=== PATIENT | female | born 1985 | race Caucasian/White ===

== ENCOUNTER → 2018-02-10 17:02 | Outpatient (CLI) | payer BC, SELFPAY ==
[2018-02-10 17:36] LABS: Basophils % 0.3 % (0.1-2.0); Eosinophils # 0.1 K/mm3 (0.0-0.4); Eosinophils % 0.8 % (0.1-12.0); Hematocrit 38.5 % (37.0-47.0); Hemoglobin 12.8 g/dL (12.2-16.2); Lymphocytes # 1.7 K/mm3 (0.7-4.5); Lymphocytes % 18.7 K/mm3 (10-50); Mean Corpuscular HGB Conc 33.4 g/dL (31.8-35.4); Mean Corpuscular Hemoglobin 29.4 pg (27.0-31.2); Mean Corpuscular Volume 88.1 fl (81-99); Mean Platelet Volume 6.9 fl (7.4-10.4); Monocytes # 0.5 K/mm3 (0.1-1.0); Monocytes % 5.1 % (1.7-9.3); Neutrophils # 6.8 K/mm3 (1.8-7.8); Neutrophils % 75.1 % (37.0-80.0); Platelet Count 276 K/mm3 (142-424); Red Blood Count 4.37 M/mm3 (4.20-5.40); Red Cell Distribution Width 13.8 % (11.5-17.5)
[2018-02-12 07:25] LABS: HIV Screen 4th Generation wRfx Non Reactive (Non Reactive)
[2018-02-12 08:11] LABS: Hepatitis B Surface Antigen Negative (Negative); Hepatitis C Antibody 0.1 s/co ratio (0.0-0.9)
[2018-02-12 11:31] LABS: Rapid Plasma Reagin Ab Titer Non Reactive (NonRea<1:1)
== END ==
PROVIDERS: Visit Provider Nurse Practitioner Obstetrics & Gynecology
DX: Z34.90 Encounter for supervision of normal pregnancy, unspecified, unspecified trimester (principal)
CPT/HCPCS: 36415; 85025; 86592; 86703; 86762; 86850; 87340; 87380; G0432

== ENCOUNTER → 2018-02-25 15:01 | Outpatient (CLI) | payer BC, SELFPAY ==
--- NOTE | 2018-02-25 15:02 | US_ITS ---
US OB transvaginal HISTORY: ITS.REASON: US OB- Dates ORDERING PHYSICIAN: Glenn Chisholm MD PATIENT AGE: 32 years COMPARISON: None FINDINGS: The uterus is retroverted An intrauterine gestational sac is present with a pole with a crown-rump length of 1.88cm correlating to gestational age of 8w3d. heart tones are present with an FHR of 160 bpm's. Yolk sac is noted. The amnion and chorion have not yet fused. Adnexa: Unremarkable. IMPRESSION: 1. Live intrauterine gestation at 8 weeks 3 days. 2. Estimated due date by ultrasound is 10/04/2018 3. Retroverted uterus
== END ==
PROVIDERS: Family Provider Family Medicine; PCP Family Medicine; Visit Provider Nurse Practitioner Obstetrics & Gynecology
DX: O26.841 Uterine size-date discrepancy, first trimester (principal)
CPT/HCPCS: 76817

== ENCOUNTER → 2018-03-10 16:02 | Outpatient (CLI) | payer BC, SELFPAY | PROVIDERS: PCP Family Medicine; Visit Provider Nurse Practitioner Obstetrics & Gynecology | DX: O20.9 Hemorrhage in early pregnancy, unspecified (principal) | CPT/HCPCS: 36415; 84702 ==

== ENCOUNTER → 2018-04-22 11:46 | Outpatient (CLI) | payer BC, SELFPAY ==
[2018-04-25 02:08] LABS: AFP Value 50.3 ng/mL (.); DIA MoM 0.87 (.); DIA Value 139.06 pg/mL (.); DSR (Second Trimester) 1 IN 10000 (.); Gest. Age on Collection Date 16.4 WEEKS (.); OSBR Risk 1 IN 2591 (.); Results Report (.); hCG MoM 0.97 (.); hCG Value 32691 mIU/mL (.); uE3 MoM 1.99 (.); uE3 Value 1.65 ng/mL (.)
[2018-04-25 06:44] LABS: Gestat. Age Based On EDD (.)
== END ==
PROVIDERS: Family Provider Family Medicine; PCP Family Medicine; Visit Provider Nurse Practitioner Obstetrics & Gynecology
DX: Z34.90 Encounter for supervision of normal pregnancy, unspecified, unspecified trimester (principal)
CPT/HCPCS: 36415; 82106

== ENCOUNTER → 2018-05-19 14:52 | Outpatient (CLI) | payer BC, SELFPAY ==
--- NOTE | 2018-05-19 14:53 | US_ITS ---
US OB /maternal detail: INDICATION: ITS.REASON: US OB Complete ORDERING PHYSICIAN: Glenn Chisholm MD PATIENT AGE: 32 years TECHNIQUE: ultrasound transabdominal scanning. COMPARISON: No previous relevant studies. FINDINGS: Single viable intrauterine gestation. Cephalic position. Placenta: Posterior placenta grade 1. There is Burns amount fluid. The cervix appears satisfactory. Closed and measuring 5 cm in length. Complete survey performed and was unremarkable on the submitted images as in PACS. No discrete anomalies identified on survey imaging by technologist. Active fetus. Three-vessel cord with satisfactory umbilical cord insertion. 4- chamber heart noted. Survey of brain & ventricles unremarkable. Face and neck survey unremarkable. Diaphragm and chest views unremarkable. Abdomen: Both kidneys noted and unremarkable. Stomach noted and satisfactory. Spine: Survey of the spine satisfactory with no anomalies identified nor imaged. Both arms and legs noted. Amniotic Fluid: Adequate. Maternal adnexa: No significant findings. Measurements: Average ultrasound age 20w4d. Gestational Age 20w4d. Estimated due date by ultrasound age 0410/02/2018. Estimated weight 358 grams. BPD = 20w3d OFD = 21w2d HC = 20w2d AC = 20w6d FL = 20w6d Growth Percentile= 57 percentile Heart Rate = 149 Cerebellum = 20w3d Humerus = 20w3d HC/AC is 1.13 (1.09-1.26). CI is 74%(70-86%). FL/BPD is 69%. FL/AC is 21%. IMPRESSION: There is a single live fetus present with an average ultrasound age of 20 weeks and 4 days with an estimated due date of 10/02/2018. Fetus is active with no obvious anatomic abnormalities. All parameters correlate. Please see above for details.
== END ==
PROVIDERS: PCP Family Medicine; Visit Provider Nurse Practitioner Obstetrics & Gynecology
DX: Z36.0 Encounter for antenatal screening for chromosomal anomalies (principal)
CPT/HCPCS: 76811

== ENCOUNTER → 2018-07-25 08:15 | Outpatient (CLI) | payer BC, SELFPAY ==
[2018-07-25 09:23] LABS: Glucose,Fasting 113 mg/dL (60-105)
[2018-07-25 10:18] LABS: Glucose 1 Hour 193 mg/dL (74-106)
== END ==
PROVIDERS: Visit Provider Nurse Practitioner Obstetrics & Gynecology
DX: Z34.90 Encounter for supervision of normal pregnancy, unspecified, unspecified trimester (principal)
CPT/HCPCS: 36415; 82951

== ENCOUNTER → 2018-08-01 07:04 | Outpatient (CLI) | payer BC, SELFPAY ==
[2018-08-01 07:50] LABS: Glucose,Fasting 106 mg/dL (60-105)
[2018-08-01 09:38] LABS: Glucose 1 Hour 214 mg/dL (74-106)
[2018-08-01 09:49] LABS: Glucose 2 Hour 146 mg/dL (74-106)
[2018-08-01 11:08] LABS: Glucose 3 Hour 153 mg/dL (74-106)
== END ==
PROVIDERS: Visit Provider Nurse Practitioner Obstetrics & Gynecology
DX: Z34.90 Encounter for supervision of normal pregnancy, unspecified, unspecified trimester (principal)
CPT/HCPCS: 36415; 82951

== ENCOUNTER → 2018-09-01 17:29 | Outpatient (CLI) | payer BC, SELFPAY | PROVIDERS: Visit Provider Nurse Practitioner Obstetrics & Gynecology | DX: Z34.90 Encounter for supervision of normal pregnancy, unspecified, unspecified trimester (principal) | CPT/HCPCS: 86403 ==

== ENCOUNTER 2018-09-26 05:28 | Inpatient (IN) ==
[2018-09-26 06:33] LABS: Basophils % 0.1 % (0.1-2.0); Eosinophils % 0.5 % (0.1-12.0); Hematocrit 39.3 % (37.0-47.0); Hemoglobin 13.6 g/dL (12.2-16.2); Lymphocytes # 2.1 K/mm3 (0.7-4.5); Lymphocytes % 25.5 % (10-50); Mean Corpuscular HGB Conc 34.7 g/dL (31.8-35.4); Mean Corpuscular Hemoglobin 29.5 pg (27.0-31.2); Mean Corpuscular Volume 84.8 fl (81-99); Mean Platelet Volume 7.1 fl (7.4-10.4); Monocytes # 0.5 K/mm3 (0.1-1.0); Neutrophils # 5.6 K/mm3 (1.8-7.8); Neutrophils % 67.9 % (37.0-80.0); Platelet Count 239 K/mm3 (142-424); Red Blood Count 4.63 M/mm3 (4.20-5.40); Red Cell Distribution Width 15.9 % (11.5-17.5); White Blood Count 8.3 K/mm3 (4.8-10.8)
--- NOTE | 2018-09-26 07:06 | Progress Note ---
[facility] Anesthesia Checklist - Patient Identification Patient Identification: Arm Band, Verbal (Name & ) - Structural Data Admitted From: Home Planned Operative Procedure/s: Repeat C section Consent for Planned Operative Procedure(s) Verified: Yes Verified Documents: Surgical Consent, History and Physical - NPO Status Verified Time NPO: 00:00 - Chart Verification Results Verified: CBC - Additional verifications Patient : Yes Anesthesia Reactions: No - Neurological Assessment Level of Consciousness: Awake Hx Seizures: No Numbness or tingling in extremities: No - Anesthesia Plan Anesthesia Risk discussed: Yes Anesthesia Plan: Verified ASA Class: II Anesthesia Type: [facility] History I have reviewed the patient's past medical history: Yes Medical History: Reports:: Gastroesophageal Reflux Disease(GERD) *Have you ever received a pneumonia vaccine?: No *Have you received a flu vaccine this season?: No Other Medical History: Reports: Other (Gestational Diabetes) Other Surgeries: Yes: (x2) Amputation: No Fractures: No - *Social History Smoking Status: Never smoker Alcohol Intake: never Substance Use Type: denies use *Occupational Status:: employed Housing: house Family Hx:: Diabetes, Cancer, Asthma, Stroke
--- NOTE | 2018-09-26 08:18 | Operative Note ---
Date of procedure: 09/26/18 Pre-op Diagnosis:: Term , previous section Post-op Diagnosis:: Term , previous section Procedure performed:: Repeat lower segment transverse section Surgeon:: Glenn Chisholm MD Toolroom Checker(s):: Yulissa Tanner SLASHER HAND:: Other (Chinmay Rose) Anesthesia: spinal Estimated blood loss (mL): 600 Clinical Note:: She is a 33-year-old 3 para 2 who was 39 weeks gestational age. She has had 2 previous section as a result of this was offered repeat lower segment transverse section at term. Operative findings:: She delivered a liveborn male child at 7:47 AM on the morning of September 26, 2018. The baby had Apgars of 9 at 1 minute and 9 at 5 minutes. PH was 7.34. Ovaries and tubes appeared normal. Operative note:: She was taken to the operating room where spinal anesthesia was found be adequate. She was prepped and draped in normal sterile fashion in the supine position with a leftward tilt. A Gaitan catheter was in the bladder. A Pfannenstiel skin incision was made with knife then carried through to the underlying layer of fascia with cautery. The fascia was opened in the midline with cautery and extended laterally using Javier scissors. Harini clamps were applied to the superior aspect of the fascial incision which was tented up and the underlying rectus muscles dissected off using cautery. The Hawks clamps were then applied to the inferior aspect of the fascial incision which in a similar fashion was tented up and the underlying rectus muscles dissected off using cautery. The rectus muscles were then in the midline, the peritoneum identified, and entered sharply with Metzenbaum scissors. This incision was then extended superiorly and inferiorly with cautery. We had good visualization of the bladder inferiorly. The Karlo device was then placed within the abdominal cavity. The bladder peritoneum was then opened in the midline and extended laterally using Metzenbaum scissors. A bladder flap was created digitally. The Karlo device was then placed within the abdominal cavity. Transverse incision was made through the uterine muscle to the amnion. This incision was then extended laterally using fingers traction. The amnion was entered sharply with knife. There was clear amniotic fluid. The 's head was then delivered atraumatically. This was followed by the anterior shoulder and the rest of the infant's body atraumatically. The oropharynx and nasopharynx were bulb suctioned. The infant was then handed off to nurses who assigned Apgars of 9 at 1 minute and 9 at 5 minutes. We then obtained cord blood as well as cord pH. The pH was 7.34. Using gentle traction on the cord and countertraction on the fundus I was able to easily deliver the placenta intact. It had a normal three-vessel cord. The uterus was then cleared of clots and debris . The uterine incision was then closed using running 0 Vicryl suture in a locked fashion. A second layer of the same suture was used to imbricate the first layer. The gutters and cul-de-sac were then cleared of clots and debris . I elected to place a large piece of Surgicel along the bladder peritoneum. Once again hemostasis was assured. The peritoneum was grasped with Angle clamps and closed using running 2-0 Vicryl suture. The rectus muscles were then reapproximated using running 0 Vicryl suture. The fascia was closed using running #1 Vicryl suture. The subcutaneous tissues were then irrigated with warm water followed by closure Ya's fascia using running 2-0 Monocryl suture. The skin was closed with girish. I then cleaned the skin with Hibiclens. Sterile dressings were applied. She tolerated the procedure well and was taken to the recovery room in excellent condition. All sponges minute and needle counts were correct. Estimate a blood loss was approximately 600 mL. Condition: stable Disposition: PACU Specimens:: Products of conception Complications:: None
--- NOTE | 2018-09-26 08:18 | Progress Note ---
[facility] Anesthesia Record Part I Intake, IV Amount: 1,000 Estimated blood loss (mL): 600 Urine output (mL): 400 Blood Pressure: 148/75 SaO2: 97 Pulse Rate: 86 Respiratory Rate: 16 Temperature: 97.2 F Patient is:: Awake, Stable Stable to PACU at:: 08:15
--- NOTE | 2018-09-26 08:19 | Progress Note ---
[facility] Anesthesia Record Part II Discharge Time: 08:45 Destination: Obstetric PACU nurse assessment reviewed?: Yes Patient Condition:: Good Anesthesia Complications:: None Swallowing reflex intact?: Yes Cyanosis?: No
[2018-09-27 05:57] LABS: Hematocrit 30.8 % (37.0-47.0)
[2018-09-27 06:01] LABS: Hemoglobin 10.3 g/dL (12.2-16.2)
--- NOTE | 2018-09-27 14:53 | Progress Note ---
Internal Medicine - PN: Subj *Date: 09/27/18 *Time: 14:51 Interval history: POD #1 elective repeat CS No complaints Tolerating regular diet, ambulating and voiding without difficulty Asymptomatic with postop anemia; hgb 13.6 at admission and 10.3 on POD #1 Exam Vital signs and Labs for Last 24 Hours: Temp Pulse Resp BP Pulse Ox 98.3 F 81 16 113/65 97 09/26/18 20:01 09/26/18 20:01 09/26/18 20:01 09/26/18 20:01 09/26/18 20:01 Laboratory Results - last 24 hr 09/27/18 05:45: Hgb 10.3 L D, Hct 30.8 L I & O for Last 24 hours: Intake & Output 09/25/18 09/26/18 09/27/18 09/28/18 11:59 11:59 11:59 11:59 Intake Total 1000 / 1000 503 / 503 Output Total 850 / 850 Balance 1000 / 1000 -347 / -347 Weight 179 lb Narrative: CONSTITUTIONAL: no acute distress HEENT: mucous membranes moist PULMONARY: breathing unlabored without audible wheezes CV: no tachycardia or visible JVD; normal LE peripheral pulses ABD: soft, NT/ND, no guarding : fundus firm at/below umbilicus SKIN: incision well approximated with no drainage, erythema or induration EXT: 1+ edema LEs NEURO: alert/oriented, no altered mental status PSYCH: appropriate mood and demeanor without anxiety/depression Assessment and Plan (1) Previous section Current visit: Yes Status: Acute Category: Surgical Code(s): Z98.891 - History of uterine scar from previous surgery (2) delivery delivered Current visit: Yes Status: Acute Category: Medical Code(s): O82 - Encounter for delivery without indication (3) Anemia associated with acute blood loss Current visit: Yes Status: Acute Category: Medical Code(s): D62 - Acute posthemorrhagic anemia - Assessment and plan all Dx Assessment and Plan for all problems:: Continue routine postop/ care FeSO4 supplementation with PNV
--- NOTE | 2018-09-28 15:06 | Progress Note ---
Internal Medicine - PN: Subj *Date: 09/28/18 *Time: 15:02 Interval history: POD # 2 RLTCS No complaints Ambulating and voiding without difficulty Tolerating regular diet Lochia appropriate Asymptomatic with mild anemia Exam Vital signs and Labs for Last 24 Hours: Temp Pulse Resp BP Pulse Ox 98.4 F 68 18 126/71 99 09/27/18 20:08 09/27/18 20:08 09/27/18 20:08 09/27/18 20:08 09/27/18 20:08 I & O for Last 24 hours: Intake & Output 09/26/18 09/27/18 09/28/18 09/29/18 11:59 11:59 11:59 11:59 Intake Total 1000 / 1000 503 / 503 Output Total 850 / 850 Balance 1000 / 1000 -347 / -347 Weight 179 lb Narrative: CONSTITUTIONAL: no acute distress HEENT: mucous membranes moist PULMONARY: breathing unlabored without audible wheezes CV: no tachycardia or visible JVD; normal LE peripheral pulses ABD: soft, ND; appropriately tender but no rebound/guarding : fundus firm at/below umbilicus SKIN: incision well approximated with no drainage, erythema or induration EXT: 1+ edema LEs NEURO: alert/oriented, no altered mental status PSYCH: appropriate mood and demeanor without anxiety/depression Assessment and Plan (1) Previous section Current visit: Yes Status: Acute Category: Surgical Code(s): Z98.891 - History of uterine scar from previous surgery (2) delivery delivered Current visit: Yes Status: Acute Category: Medical Code(s): O82 - Encounter for delivery without indication (3) Anemia associated with acute blood loss Current visit: Yes Status: Acute Category: Medical Code(s): D62 - Acute posthemorrhagic anemia - Assessment and plan all Dx Assessment and Plan for all problems:: Continue routine postop/ care PNV with FeSO4 supplementation Anticipate discharge in am
[2018-09-28 22:45] VITALS: BP 128/78
--- NOTE | 2018-09-29 14:09 | Discharge Summary ---
General - General Admission date:: 09/26/18 Discharge date: 09/29/18 HPI HPI: Admitted following elective repeat CS @ 39 wks Postop/ course uneventful Ambulating and voiding without difficulty Dylan regular diet; lochia appropriate asymptomatic with mild anemia discharged home on POD #3 Hospital Course Hospital Course: per HPI Rhogam Administration: Not Indicated Objective Vital signs: Temp Pulse Resp BP Pulse Ox 98.3 F 71 18 128/78 99 09/28/18 21:33 09/28/18 21:33 09/28/18 21:33 09/28/18 21:33 09/28/18 21:33 CONSTITUTIONAL: no acute distress HEENT: mucous membranes moist PULMONARY: breathing unlabored without audible wheezes CV: no tachycardia or visible JVD; normal LE peripheral pulses ABD: soft, ND; appropriately tender but no rebound/guarding : fundus firm at/below umbilicus SKIN: incision well approximated with no drainage, erythema or induration EXT: 1+ edema LEs NEURO: alert/oriented, no altered mental status PSYCH: appropriate mood and demeanor without anxiety/depression DS: Diagnosis - Discharge Diagnosis (1) Previous section Status: Acute (2) delivery delivered Status: Acute (3) Anemia associated with acute blood loss Status: Acute Discharge Plan - Patient Discharge Instructions ACTIVITY: Limited activity DIET: regular diet Additional Instructions: NO HEAVY LIFTING. NO STRENUOUS ACTIVITIES. NOTHING IN THE VAGINA FOR 6 WEEKS. Patient Instructions: DI for , Surgical Site Infection - Follow up Plan Follow up with: Glenn Chisholm MD [Staff Physician] - Disposition: Home, Self-Detention Medications: Home Medications Medication Instructions Recorded Confirmed Type folic acid 20 mg capsule 4 mg PO DAILY cap 02/10/18 09/26/18 History multivitamin tablet 1 tab PO DAILY 02/10/18 09/26/18 History Ferrous Sulfate 325 mg PO DAILY 09/26/18 09/26/18 History Ibuprofen [Motrin 400mg 800 mg PO Q6HP PRN #30 tab 09/29/18 Rx tablet] Oxycodone HCl [OxyIR 5mg tablet] 10 mg PO Q4HP PRN #30 tab 09/29/18 Rx Prescriptions/Medication Reconciliation: New Ibuprofen [Motrin 400mg tablet] 800 mg PO Q6HP PRN #30 tab PRN Reason: Mild To Moderate Pain Oxycodone HCl [OxyIR 5mg tablet] 10 mg PO Q4HP PRN #30 tab PRN Reason: Moderate To Severe Pain Continue multivitamin tablet 1 tab PO DAILY folic acid 20 mg capsule 4 mg PO DAILY cap Ferrous Sulfate 325 mg PO DAILY
== END 2018-09-29 14:50 | disposition home or self-care (01) | DRG 788 ==
LOC: OB 05:28
PROVIDERS: ADMIT Nurse Practitioner Obstetrics & Gynecology; ATTEND Nurse Practitioner Obstetrics & Gynecology
CPT/HCPCS: J2405

== ENCOUNTER → 2020-04-22 11:47 | Outpatient (CLI) | payer BC, SELFPAY ==
--- NOTE | 2020-04-22 11:52 | XR_ITS ---
PROCEDURE: XR FEMUR LT 2V CLINICAL INDICATION: LT THIGH PAIN COMPARISON: No exams were available for comparison FINDINGS: No fracture or dislocation. No lytic or blastic change. There is normal mineralization. The joint spaces are well-preserved. No significant degenerative/arthritic changes. No erosive changes evident. Other findings:None. IMPRESSION: Negative left femur Dictated by: Sal Longoria MD 04/22/2020 14:37 Sal Longoria MD in [facility] 04/22/2020 14:37
== END ==
PROVIDERS: PCP Internal Medicine Adolescent Medicine; Visit Provider Nurse Practitioner
DX: M79.652 Pain in left thigh (principal)
CPT/HCPCS: 73552

== ENCOUNTER → 2020-05-20 09:44 | Outpatient (CLI) | payer BC, SELFPAY ==
[2020-05-20 11:30] LABS: HCG,Quantitative 4628 mIU/ml (0-5.42)
== END ==
PROVIDERS: Visit Provider Nurse Practitioner Obstetrics & Gynecology
DX: Z34.90 Encounter for supervision of normal pregnancy, unspecified, unspecified trimester (principal)
CPT/HCPCS: 36415; 84702

== ENCOUNTER → 2020-06-03 10:35 | Outpatient (CLI) | payer BC, SELFPAY ==
[2020-06-03 10:39] LABS: Microscopic, Urine URINE MICROSCOPIC (MICROSCOPIC)
[2020-06-03 11:24] LABS: Appearance,Urine CLEAR (Clear); Bilirubin,Urine Negative (Negative); Blood, Urine Negative (Negative); Color,Urine YELLOW (Yellow); Glucose,Urine (UA) Negative (Negative); Ketones,Urine Negative (Negative); Leukocyte Esterase,Urine Negative (Negative); Nitrate,Urine Negative (Negative); Protein,Urine Negative (Negative); Specific Gravity, Urine 1.025 (1.005-1.030); Urobilinogen,Urine 0.2 EU/dl (0.2)
[2020-06-03 11:34] LABS: Basophils % 0.2 % (0.1-2.0); Eosinophils # 0.1 K/mm3 (0.0-0.4); Eosinophils % 1.2 % (0.1-12.0); Hematocrit 45.1 % (37.0-47.0); Hemoglobin 15.1 g/dL (12.2-16.2); Lymphocytes # 1.8 K/mm3 (0.7-4.5); Lymphocytes % 20.2 % (10-50); Mean Corpuscular HGB Conc 33.4 g/dL (31.8-35.4); Mean Corpuscular Hemoglobin 30.4 pg (27.0-31.2); Mean Corpuscular Volume 91.1 fl (81-99); Monocytes # 0.4 K/mm3 (0.1-1.0); Monocytes % 4.6 % (1.7-9.3); Neutrophils # 6.5 K/mm3 (1.8-7.8); Neutrophils % 73.8 % (37.0-80.0); Platelet Count 309 K/mm3 (142-424); Red Blood Count 4.95 M/mm3 (4.20-5.40); Red Cell Distribution Width 13.7 % (11.5-17.5); White Blood Count 8.9 K/mm3 (4.8-10.8)
[2020-06-03 12:03] LABS: Bacteria,Urine Trace /lpf
[2020-06-04 08:20] LABS: HIV Screen 4th Generation wRfx Non Reactive (Non Reactive)
[2020-06-04 12:54] LABS: Hepatitis B Surface Antigen Negative (Negative); Hepatitis C Antibody <0.1 s/co ratio (0.0-0.9); Rapid Plasma Reagin Ab Titer Non Reactive (NonRea<1:1); Rubella Antibodies, IgG <0.90 index (Immune >0.99)
== END ==
PROVIDERS: Visit Provider Nurse Practitioner Obstetrics & Gynecology
DX: Z34.90 Encounter for supervision of normal pregnancy, unspecified, unspecified trimester (principal)
CPT/HCPCS: 36415; 81001; 85025; 86592; 86703; 86762; 86850; 87340; 87380; G0432

== ENCOUNTER → 2020-06-14 12:49 | Outpatient (CLI) | payer BC, SELFPAY ==
--- NOTE | 2020-06-14 12:50 | US_ITS ---
PROCEDURE: US OB >= 14 WEEKS FETUS CLINICAL INDICATION: for dates Evaluate gestational age COMPARISON: US OBFEMAT US OB /maternal detail from 05/19/2018 FINDINGS: An intrauterine gestational sac is present with a pole with a crown-rump length of 2.08 cm correlating to gestational age of 8 weeks 5 days. heart tones are present with an FHR of 170 BPM. Unremarkable adnexa IMPRESSION: Live IUP 8 weeks days Estimated due date by Ultrasound is 01/19/2021 Dictated by: Sal Longoria MD 06/15/2020 06:30 Sal Longoria MD in [facility] 06/15/2020 06:30
== END ==
PROVIDERS: PCP Family Medicine; Visit Provider Nurse Practitioner Obstetrics & Gynecology
DX: Z34.90 Encounter for supervision of normal pregnancy, unspecified, unspecified trimester (principal)
CPT/HCPCS: 76805

== ENCOUNTER → 2020-07-11 14:08 | Outpatient (CLI) | payer BC, SELFPAY ==
[2020-07-11 14:41] LABS: Basophils % 0.3 % (0.1-2.0); Eosinophils % 0.7 % (0.1-12.0); Hematocrit 40.4 % (37.0-47.0); Hemoglobin 13.4 g/dL (12.2-16.2); Lymphocytes # 1.1 K/mm3 (0.7-4.5); Lymphocytes % 21.8 % (10-50); Mean Corpuscular HGB Conc 33.2 g/dL (31.8-35.4); Mean Corpuscular Hemoglobin 30.4 pg (27.0-31.2); Mean Corpuscular Volume 91.8 fl (81-99); Monocytes # 0.4 K/mm3 (0.1-1.0); Neutrophils # 3.6 K/mm3 (1.8-7.8); Neutrophils % 69.2 % (37.0-80.0); Platelet Count 254 K/mm3 (142-424); White Blood Count 5.2 K/mm3 (4.8-10.8)
== END ==
PROVIDERS: PCP Nurse Practitioner; Visit Provider Nurse Practitioner
DX: Z20.822 Contact with and (suspected) exposure to COVID-19 (principal); U07.1 COVID-19
CPT/HCPCS: 85025; 87275; 87276; U0003

== ENCOUNTER → 2020-09-02 10:27 | Outpatient (CLI) | payer BC, SELFPAY ==
--- NOTE | 2020-09-02 10:28 | US_ITS ---
PROCEDURE: US OB /MATERNAL DETAIL CLINICAL INDICATION: US OB COMPLETE-20wk Anatomy scan past hx of children with spinal and heart defects COMPARISON: US US OB >= 14 WEEKS FETUS from 06/14/2020 FINDINGS: There is a single live fetus present which is in cephalic presentation. The cervix is closed. Cervix measures approximately 4 cm in length transabdominal. The placenta is anterior in implantation and grade 1. Complete survey performed and was unremarkable on the submitted images as in PACS. No discrete anomalies identified on survey imaging by technologist. Active fetus. Three-vessel cord with satisfactory umbilical cord insertion. 4- chamber heart noted. Survey of brain & ventricles Unremarkable. Face and neck survey unremarkable. Diaphragm and chest views unremarkable. Abdomen: Both kidneys noted and unremarkable. Stomach noted and satisfactory. Spine: Survey of the spine satisfactory with no anomalies identified nor imaged. Both arms and legs noted. Amniotic Fluid: Adequate. Maternal adnexa: No significant findings. Measurements: Average ultrasound age 20weeks 2days. Gestational Age 20weeks 1day Estimated due date by ultrasound age 0701/18/2021. Estimated weight 364g BPD = 19weeks 6days OFD = 19weeks 6days HC = 19weeks 1day AC = 20weeks 5days FL = 21weeks 1day Growth Percentile= 71Percent% Heart Rate = 149bpm Cerebellum = 20weeks 1day Humerus = 21weeks 1day HC/AC is 1.05 CI is 0.8 FL/BPD is 0.76 FL/AC is 0.23 IMPRESSION: Live IUP at 20 weeks 2 days. Cephalic presentation. No obvious anomalies. Please see above for detail. Dictated by: Sal Longoria MD 09/03/2020 09:13 Sal Longoria MD in [facility] 09/03/2020 09:13
== END ==
PROVIDERS: PCP Family Medicine; Visit Provider Nurse Practitioner Obstetrics & Gynecology
DX: Z36.0 Encounter for antenatal screening for chromosomal anomalies (principal)
CPT/HCPCS: 76811

== ENCOUNTER → 2020-09-23 07:28 | Outpatient (CLI) | payer BC, SELFPAY ==
[2020-09-23 08:42] LABS: Glucose,Fasting 113 mg/dl (74-100)
[2020-09-23 09:31] LABS: Glucose 1 Hour 206 mg/dL (74-100)
[2020-09-23 10:33] LABS: Glucose 2 Hour 160 mg/dL (74-100)
[2020-09-23 11:30] LABS: Glucose 3 Hour 133 mg/dL (74-100)
== END ==
PROVIDERS: Visit Provider Nurse Practitioner Obstetrics & Gynecology
DX: Z34.90 Encounter for supervision of normal pregnancy, unspecified, unspecified trimester (principal); Z3A.22 22 weeks gestation of pregnancy
CPT/HCPCS: 36415; 82951

== ENCOUNTER → 2020-12-16 14:07 | Outpatient (CLI) | payer BC, SELFPAY | PROVIDERS: Visit Provider Nurse Practitioner Obstetrics & Gynecology | DX: Z34.90 Encounter for supervision of normal pregnancy, unspecified, unspecified trimester (principal) | CPT/HCPCS: 86403 ==

== ENCOUNTER 2021-01-06 12:53 | Inpatient (IN) | payer BC, SELFPAY ==
[2021-01-06] VITALS (20 sets, daily range): BP systolic 91–164; BP diastolic 41–108; PULSE 64–86; RESP 16–20; TEMP 36.2–37.5; O2SAT 97–100; BMI 35.3
[2021-01-06 13:49] LABS: Basophils % 0.2 % (0.1-2.0); Eosinophils % 0.5 % (0.1-12.0); Hematocrit 36.7 % (37.0-47.0); Hemoglobin 12.8 g/dL (12.2-16.2); Lymphocytes # 1.6 K/mm3 (0.7-4.5); Lymphocytes % 19.1 % (10-50); Mean Corpuscular HGB Conc 34.9 g/dL (31.8-35.4); Mean Corpuscular Hemoglobin 29.6 pg (27.0-31.2); Mean Corpuscular Volume 84.8 fl (81-99); Mean Platelet Volume 7.9 fl (7.4-10.4); Monocytes # 0.4 K/mm3 (0.1-1.0); Monocytes % 4.9 % (1.7-9.3); Neutrophils # 6.4 K/mm3 (1.8-7.8); Neutrophils % 75.3 % (37.0-80.0); Platelet Count 217 K/mm3 (142-424); Red Blood Count 4.33 M/mm3 (4.20-5.40); Red Cell Distribution Width 15.6 % (11.5-17.5); White Blood Count 8.6 K/mm3 (4.8-10.8)
[2021-01-06 13:50] LABS: Coronavirus 19, PCR Not Detected (NotDetected); Influenza A, PCR Not Detected (NotDetected); Influenza B, PCR Not Detected (NotDetected)
[2021-01-06 14:07] LABS: Activated Partial Thrombo Time 24.8 seconds (22.8-30.6); Fibrinogen 513 mg/dL (229.9-363.5); Prothrombin Time 9.7 seconds (10.1-12.5)
[2021-01-06 14:08] LABS: D-Dimer 1.31 ug/mL (0.0-0.5)
--- NOTE | 2021-01-06 14:08 | P.PN_ITS ---
[facility] Anesthesia Checklist - Patient Identification Patient Identification: Arm Band - Structural Data Admitted From: Other (OB) Planned Operative Procedure/s: Repeat C/S Consent for Planned Operative Procedure(s) Verified: Yes - NPO Status Verified Time NPO: 10:00 (Poptart) - Additional verifications Anesthesia Reactions: No - Airway Assessment C-Spine Mobility Assessed: Yes TMJ Mobility Assessed: Yes Dentition: Good Dentition - Neurological Assessment Level of Consciousness: Awake Hx Seizures: No Numbness or tingling in extremities: No - Anesthesia Plan Anesthesia Risk discussed: Yes Anesthesia Plan: Verified ASA Class: II Anesthesia Type: Spinal [facility] History I have reviewed the patient's past medical history: Yes Medical History: Reports:: Gastroesophageal Reflux Disease(GERD) Denies:: Seizures *Have you ever received a pneumonia vaccine?: No *Have you received a flu vaccine this season?: No Other Medical History: Reports: Other (Gestational DM) Anesthesia experience/problems:: N/V Other Surgeries: Yes: Amputation: No Fractures: No - *Social History Smoking Status: Former smoker Alcohol Intake: never Alcohol Intake Frequency:: other Substance Use Type: denies use *Occupational Status:: employed Housing: house *Travel in the last 8 weeks: None Family Hx:: Diabetes, Cancer, Asthma, Stroke
[2021-01-06 14:10] LABS: INR 0.81 (0.9-1.1)
[2021-01-06 14:20] LABS: POC Glucose,Bedside 97 (70-110)
[2021-01-06 15:17] LABS: Potassium 4.4 mmoL/L (3.5-5.1); Sodium 136 mmol/L (136-145)
[2021-01-06 15:20] LABS: Alanine Aminotransferase 11 U/L (12-78); Aspartate Amino Transferase 23 U/L (14-36); Blood Urea Nitrogen 10 mg/dl (7-17); Calcium 9.1 mg/dl (8.4-10.2); Carbon Dioxide 16 mmol/L (22.0-30.0); Creatinine Clearance Estimated 148 mL/min (50-200); Estimated Glomerular Filt Rate 96 ml/min (>60); GFR (African American) 117 ML/MIN (>60); Glucose 88 mg/dl (74-100); Uric Acid 6.7 mg/dl (2.5-6.2)
[2021-01-06 15:36] LABS: Anion Gap 14.4 mEq/L (5-15); Chloride 110 mmol/L (98-107)
--- NOTE | 2021-01-06 15:59 | HMH.OBAPHP ---
OB - H&P: HPI Antepartum - History of Present Illness Chief complaint: Previous section, -induced hypertension, gestational diab History of present illness: She is a 35-year-old 4 para 3 at 38 and 1 weeks gestational age. She has been followed for gestational diabetes throughout the . It is diet-controlled. She has been doing well with this. She was seen in my office today and her blood pressure was found to be in the 140s over 100 range. She had a mild headache. She was hyper reflexive. As result of that she is offered repeat lower segment transverse section today. She was scheduled for a next week. She also expressed desire for sterilization. - History of Present Criteria for establishing EDC:: based on 1st trimester US only care: good care Ultrasounds: normal 1st trimester US, normal mid trimester US Obstetrical complications: gestational diabetes, preeclampsia Medical complications: none - Labs Blood type: A (+) positive Rubella: immune RPR/VDRL: nonreactive GBS status: negative HBsAG: negative [facility] History I have reviewed the patient's past medical history: Yes Medical History: Reports:: Gastroesophageal Reflux Disease(GERD) Denies:: Seizures *Have you ever received a pneumonia vaccine?: No *Have you received a flu vaccine this season?: No Other Medical History: Reports: Other (Gestational DM) Anesthesia experience/problems:: N/V Other Surgeries: Yes: Amputation: No Fractures: No - *Social History Smoking Status: Former smoker Alcohol Intake: never Alcohol Intake Frequency:: other Substance Use Type: denies use *Occupational Status:: unemployed Housing: house *Travel in the last 8 weeks: None Family Hx:: Diabetes, Cancer, Asthma, Stroke Para: 3 Review of Systems - Review of Systems Review of systems:: pertinent systems reviewed and negative unless documented below Meds Home Medications Medication Instructions Recorded Confirmed Type magnesium oxide 500 mg tablet 500 mg PO DAILY 12/27/20 01/06/21 History Folic Acid [Folic Acid 1mg tablet] 4 mg PO DAILY 01/06/21 01/06/21 History Multivitamin 1 tab PO DAILY 01/06/21 01/06/21 History Allergies Allergy/AdvReac Type Severity Reaction Status Date / Time No Known Allergies Allergy Verified 01/06/21 11:49 OB - H&P: Exam - Physical Exam Vital signs: Temp Pulse Resp BP Pulse Ox 99.5 F 86 20 164/94 H 97 01/06/21 13:30 01/06/21 13:30 01/06/21 13:30 01/06/21 13:30 01/06/21 13:30 - Constitutional no acute distress - Routine HEENT Exam Head: Present: normocephalic Eye: Present: EOMI, PERRL ENT: Present: mucous membranes moist - Routine Neck Exam Present: supple, full ROM - Routine Respiratory Exam Absent: accessory muscle use (good air entry bilaterally), respiratory distress, wheezes, crackles - Routine Cardiovascular Exam Present: RRR. Absent: murmur - Routine Abdominal Exam Present: soft, normoactive bowel sounds. Absent: tenderness, distended, guarding - Routine Rectal Exam Patient deferred: visual exam, digital exam - Routine Exam Patient deferred: external exam, groin exam, perineal exam - Routine Extremities Exam Present: full ROM. Absent: cyanosis, edema - Routine Skin Exam Present: intact. Absent: cyanosis - Routine Neurological Exam Present: alert, oriented X3 - Routine Psychiatric Exam Present: normal affect OB - Results - Labs Labs: Short CBC 01/06/21 Range/Units 13:41 WBC 8.6 (4.8-10.8) K/mm3 Hgb 12.8 (12.2-16.2) g/dL Hct 36.7 L (37.0-47.0) % Plt Count 217 (142-424) K/mm3 BMP 01/06/21 13:41 Sodium 136 Potassium 4.4 Chloride 110 H Carbon Dioxide 16 L BUN 10 Creatinine 0.70 Glucose 88 Calcium 9.1 Liver Function 01/06/21 Range/Units 13:41 AST 23 (14-36) U/L ALT 11 L (12-78) U/L OB - A/P Antepartum (1) Previou
[2021-01-06 16:36] LABS: Cord Blood PH 7.36 (7.35-7.45)
--- NOTE | 2021-01-06 17:05 | HMH.OPNOTE ---
Date of procedure: 01/06/21 Pre-op Diagnosis:: Term , previous section, gestational diabetes, -induced hypertension desire for sterilization Post-op Diagnosis:: Term , previous section, gestational diabetes, -induced hypertension, desire for sterilization Procedure performed:: Repeat lower segment transverse section, bilateral salpingectomy Surgeon:: Glenn Chisholm MD FOIL SPINNER:: Naresh Castillo Anesthesia: spinal Estimated blood loss (mL): 400 Clinical Note:: She is a 35-year-old 4 para 3 at 38+1 weeks gestational age. She was seen in my office today and her blood pressure was found to be in the 140s over 100 range. She is a gestational diabetic on diet alone. She has had 3 previous sections and was scheduled for repeat lower segment transverse section next week. She also expressed desire for sterilization. Operative findings:: She delivered a liveborn female child at 4:26 PM in the afternoon of January 06, 2021. The baby weighed 7 pounds 13 ounces and had Apgars of 8 at 1 minute and 9 at 5 minutes. pH was 7.36. Ovaries and tubes appeared normal. Operative note:: She was taken to the operating room where spinal anesthesia was found be adequate. She was prepped and draped in normal sterile fashion in the supine position with a leftward tilt. A Gaitan catheter was in the bladder. A Pfannenstiel skin incision was made with knife then carried through to the underlying layer of fascia with cautery. The fascia was opened in the midline with cautery and extended laterally using Javier scissors. Harini clamps were applied to the superior aspect of the fascial incision which was tented up and the underlying rectus muscles dissected off using cautery. The Harini clamps were then applied to the inferior aspect of the fascial incision which in a similar fashion was tented up and the underlying rectus muscles dissected off using cautery. The rectus muscles were then in the midline, the peritoneum identified, and entered sharply with Metzenbaum scissors. This incision was then extended superiorly and inferiorly with cautery. We had good visualization of the bladder inferiorly. The bladder peritoneum was then opened in the midline and extended laterally using Metzenbaum scissors. A bladder flap was created digitally. Transverse incision was made through the uterine muscle to the amnion. This incision was then extended laterally using fingers traction. The amnion was entered sharply with knife. There was clear amniotic fluid. The 's head was then delivered atraumatically. This was followed by the anterior shoulder and the rest of the infant's body atraumatically. The oropharynx and nasopharynx were bulb suctioned. The infant was then handed off to Dr. Zuniga who assigned Apgars of 8 at 1 minute and 9 at 5 minutes. We then obtained cord blood as well as cord pH. The pH was 7.36. Using gentle traction on the cord and countertraction on the fundus I was able to easily deliver the placenta intact. It had a normal three-vessel cord. The uterus was then cleared of clots and debris . The uterus was then exteriorized from the abdominal cavity. The uterine incision was then closed using running 0 Vicryl suture in a locked fashion. A second layer of the same suture was used to imbricate the first layer. The bladder peritoneum was then closed using running 2-0 Vicryl suture in a locked fashion. The gutters and cul-de-sac were then cleared of clots and debris . Once again hemostasis was assured. We then performed a bilateral salpingectomy. The distal end of the tube was grasped with my fingers and using the endoseal I cut through the mesosalpinx. I then cut across the tube close to the cornua. This was similarly performed on the opposite side. Tubes were sent to pathology. After once again assuring hemostasis the uterus was then returned to the abdominal cavity. The perito
--- NOTE | 2021-01-06 17:16 | HMH.ANESI ---
[facility] Anesthesia Record Part I Intake, IV Amount: 1,000 Estimated blood loss (mL): 400 Urine output (mL): 650 Blood Pressure: 103/41 SaO2: 100 Pulse Rate: 67 Respiratory Rate: 16 Temperature: 98.4 F Patient is:: Awake Stable to PACU at:: 17:13
[2021-01-07] VITALS (17 sets, daily range): BP systolic 99–157; BP diastolic 54–100; PULSE 59–93; RESP 16–18; TEMP 36.4–36.9; O2SAT 99–100
[2021-01-07 06:44] LABS: Basophils % 0.2 % (0.1-2.0); Eosinophils % 0.1 % (0.1-12.0); Lymphocytes # 1.4 K/mm3 (0.7-4.5); Monocytes # 0.6 K/mm3 (0.1-1.0); Neutrophils # 9.4 K/mm3 (1.8-7.8); White Blood Count 11.4 K/mm3 (4.8-10.8)
[2021-01-07 06:49] LABS: Hematocrit 32.2 % (37.0-47.0); Lymphocytes % 12.3 % (10-50); Mean Corpuscular Hemoglobin 30.2 pg (27.0-31.2); Mean Corpuscular Volume 88.7 fl (81-99); Mean Platelet Volume 7.6 fl (7.4-10.4); Monocytes % 5.2 % (1.7-9.3); Neutrophils % 82.2 % (37.0-80.0); Platelet Count 203 K/mm3 (142-424); Red Blood Count 3.63 M/mm3 (4.20-5.40); Red Cell Distribution Width 15.4 % (11.5-17.5)
[2021-01-07 08:24] LABS: Magnesium 6.8 mg/dl (1.6-2.3)
--- NOTE | 2021-01-07 08:55 | P.CONPHA_ITS ---
[facility] Pharmacy VTE Monitoring - Patient Demographics Admission date: 01/06/21 Report Date: 01/07/21 Time: 08:55 Allergies/Adverse Reactions: Patient Allergies No Known Allergies Allergy (Verified 01/06/21 11:49) Height: 1.52 m Weight: 82.1 kg Patient Problems: Current Active Problems Previous section complicating (Acute) Gestational diabetes mellitus (GDM) affecting fourth (Acute) Preeclampsia (Acute) Encounter for sterilization (Acute) - VTE Risk Labs: VTE Related Lab Results Hgb 11.0 g/dL (12.2-16.2) L D 01/07/21 06:07 Hct 32.2 % (37.0-47.0) L 01/07/21 06:07 Plt Count 203 K/mm3 (142-424) 01/07/21 06:07 PT 9.7 seconds (10.1-12.5) L 01/06/21 13:41 INR 0.81 (0.9-1.1) L 01/06/21 13:41 APTT 24.8 seconds (22.8-30.6) 01/06/21 13:41 Fibrinogen 513 mg/dL (229.9-363.5) H 01/06/21 13:41 BUN 10 mg/dl (7-17) 01/06/21 13:41 Creatinine 0.70 mg/dl (0.52-1.04) 01/06/21 13:41 Estimated Creat Clear 148 mL/min (50-200) 01/06/21 13:41 - Prophylaxis VTE Prophylaxis Ordered?: Yes Types of VTE Prophylaxis: IPCS Knee High (post op) Location of Applied Device: Bilateral Lower Extremeties
--- NOTE | 2021-01-07 09:17 | HMH.ACPN2 ---
Internal Medicine - PN: Subj *Date: 01/07/21 *Time: 09:17 Interval history: She is doing very well this morning. She is eating and drinking and ambulating. She is breast-feeding. Her lochia is normal. Her incision is clean and dry. Her pain is reasonably well controlled with the T AP block Exam Vital signs and Labs for Last 24 Hours: Temp Pulse Resp BP Pulse Ox 97.8 F 74 18 152/84 H 100 01/07/21 08:11 01/07/21 08:11 01/07/21 08:11 01/07/21 08:11 01/07/21 08:11 Laboratory Results - last 24 hr 01/06/21 13:41: WBC 8.6, RBC 4.33, Hgb 12.8, Hct 36.7 L, MCV 84.8, MCH 29.6, MCHC 34.9, RDW 15.6, Plt Count 217, MPV 7.9, Neut % (Auto) 75.3, Lymph % (Auto) 19.1, [place] % (Auto) 4.9, Eos % (Auto) 0.5, Baso % (Auto) 0.2, Neut # (Auto) 6.4, Lymph # (Auto) 1.6, [place] # (Auto) 0.4, Eos # (Auto) 0.0, Baso # (Auto) 0.0 01/06/21 13:41: PT 9.7 L, INR 0.81 L, APTT 24.8, Fibrinogen 513 H 01/06/21 13:41: D-Dimer 1.31 H, Sodium 136, Potassium 4.4, Chloride 110 H, Carbon Dioxide 16 L, Anion Gap 14.4, BUN 10, Creatinine 0.70, Estimated Creat Clear 148, Estimated GFR 96, Est GFR ( Amer) 117, Glucose 88, Uric Acid 6.7 H, Calcium 9.1, AST 23, ALT 11 L 01/06/21 13:41: Blood Type A Positive, Antibody Screen Negative 01/06/21 13:41: SARS-CoV-2 (PCR) Not detected, Influenza A Untype (PCR) Not detected, Influenza Type B (PCR) Not detected 01/06/21 13:41: Magnesium 2.0 01/06/21 14:08: POC Glucose 97 01/06/21 16:33: Cord ABG pH 7.36 01/07/21 06:07: WBC 11.4 H D, RBC 3.63 L, Hgb 11.0 L D, Hct 32.2 L, MCV 88.7, MCH 30.2, MCHC 34.0, RDW 15.4, Plt Count 203, MPV 7.6, Neut % (Auto) 82.2 H, Lymph % (Auto) 12.3, [place] % (Auto) 5.2, Eos % (Auto) 0.1, Baso % (Auto) 0.2, Neut # (Auto) 9.4 H, Lymph # (Auto) 1.4, [place] # (Auto) 0.6, Eos # (Auto) 0.0, Baso # (Auto) 0.0 01/07/21 06:07: Magnesium 6.8 H D I & O for Last 24 hours: Intake & Output 01/04/21 01/05/21 01/06/21 01/07/21 11:59 11:59 11:59 11:59 Intake Total 1000 / 1000 Output Total 1800 / 1800 Balance -800 / -800 Weight 181 lb - Constitutional no acute distress - *Routine HEENT Exam Head: Present: normocephalic Eye: Present: EOMI, PERRL ENT: Present: mucous membranes moist Assessment and Plan (1) Previous section complicating Status: Acute Category: Surgical Code(s): O34.219 - Maternal care for unspecified type scar from previous delivery (2) Gestational diabetes mellitus (GDM) affecting fourth Status: Acute Category: Medical Code(s): O24.419 - Gestational diabetes mellitus in , unspecified control (3) Preeclampsia Status: Acute Qualifiers: Trimester: third trimester Qualified Code(s): O14.93 - Unspecified pre-eclampsia, third trimester Category: Medical Code(s): O14.90 - Unspecified pre-eclampsia, unspecified trimester (4) Encounter for sterilization Status: Acute Category: Medical Code(s): Z30.2 - Encounter for sterilization - Assessment and plan all Dx Assessment and Plan for all problems:: She is doing well. We will continue with her magnesium sulfate until the baby is 24 hours old. We will consider labetalol 200 mg twice daily if the blood pressure continues to be elevated. We will plan to send her home tomorrow.
[2021-01-07 22:59] LABS: Microscopic,Cath URINE MICROSCOPIC (MICROSCOPIC)
[2021-01-07 23:06] LABS: Appearance,Urine/Cath CLEAR (Clear); Bilirubin,Cath Negative (Negative); Blood, Urine/Cath TRACE-I (Negative); Color,Urine/Cath STRAW (Yellow); Glucose,Urine/Cath (UA) Negative (Negative); Ketones,Urine/Cath Negative (Negative); Leukocyte Esterase,Cath Negative (Negative); Nitrate,Cath Negative (Negative); Protein,Urine/Cath Negative (Negative); Specific Gravity, Urine/Cath 1.025 (1.005-1.030); Urobilinogen,Cath 0.2 EU/dl (0.2)
[2021-01-07 23:51] LABS: Bacteria,Urine/Cath TRACE /lpf; Squamous Epithelial Ur./Cath Occasional #/hpf (0-5)
[2021-01-08 08:16] VITALS: BP 129/78; PULSE 74; RESP 18; TEMP 36.7; O2SAT 100
--- NOTE | 2021-01-08 11:06 | HMH.ACPN2 ---
Internal Medicine - PN: Subj *Date: 01/08/21 *Time: 11:06 ( day #2. Patient is afebrile. Vital signs stable. Wound clean. Abdomen soft. Lochia normal. Uterine fundus involuting well. Blood sugar is 97. She is anxious for early discharge and will be discharged today.) Exam Vital signs and Labs for Last 24 Hours: Temp Pulse Resp BP Pulse Ox 98.1 F 74 18 129/78 100 01/08/21 08:16 01/08/21 08:16 01/08/21 08:16 01/08/21 08:16 01/08/21 08:16 Laboratory Results - last 24 hr 01/06/21 16:15: Urine Color Straw, Urine Appearance Clear, Urine pH 6.0, Ur Specific [place] 1.025, Urine Protein Negative, Urine Glucose (UA) Negative, Urine Ketones Negative, Urine Blood Trace-i, Urine Nitrate Negative, Urine Bilirubin Negative, Urine Urobilinogen 0.2, Ur Leukocyte Esterase Negative, Ur Squamous Epith Cells Occasional, Urine Bacteria Trace I & O for Last 24 hours: Intake & Output 01/05/21 01/06/21 01/07/21 01/08/21 11:59 11:59 11:59 11:59 Intake Total 1000 / 1000 Output Total 1800 / 1800 Balance -800 / -800 Weight 181 lb Assessment and Plan (1) Previous section complicating Status: Acute Category: Surgical Code(s): O34.219 - Maternal care for unspecified type scar from previous delivery (2) Gestational diabetes mellitus (GDM) affecting fourth Status: Acute Category: Medical Code(s): O24.419 - Gestational diabetes mellitus in , unspecified control (3) Preeclampsia Status: Acute Qualifiers: Trimester: third trimester Qualified Code(s): O14.93 - Unspecified pre-eclampsia, third trimester Category: Medical Code(s): O14.90 - Unspecified pre-eclampsia, unspecified trimester (4) Encounter for sterilization Status: Acute Category: Medical Code(s): Z30.2 - Encounter for sterilization
--- NOTE | 2021-01-08 11:09 | HMH.DCSUM ---
General - General Admission date:: 01/06/21 Discharge date: 01/08/21 (35-year-old 4, now para 4, Ab0 white female with 3 previous sections was admitted at 38-1/7 weeks with gestational hypertension. She was also a gestational diabetic, diet controlled. On the date of admission, she was taken to the operating room, where she underwent a repeat low transverse cervical section and bilateral tubal sterilization procedure, without complications. , her vital signs are stable, and her blood pressure has remained in the normal range. Her blood sugar is 97. Her general physical exam and surgical evaluation are normal. Her wound is clean. Her abdomen is soft. Her lochia is normal. Her uterine fundus has involuted well. The baby is breast-feeding well. The baby was an 8/9, 7 pound 13 ounce, 19.5 inch female , who is doing well. The patient is discharged home on the second day on iron and vitamins, and on Tylenol and Motrin, as needed for pain. She will continue to check her blood sugars at home. Her blood type is A+. Her rubella titer is nonimmune and she will be vaccinated prior to discharge. She is given appropriate instructions as to diet and exercise and wound care, and she is to return to see Dr. Chisholm as scheduled.) Hospital Course Rhogam Administration: Not Indicated Objective Vital signs: Temp Pulse Resp BP Pulse Ox 98.1 F 74 18 129/78 100 01/08/21 08:16 01/08/21 08:16 01/08/21 08:16 01/08/21 08:16 01/08/21 08:16 Results Labs on day of discharge: Labs from last 24 hours 01/06/21 16:15 Urine Color Straw Urine Appearance Clear Urine pH 6.0 Ur Specific [place] 1.025 Urine Protein Negative Urine Glucose (UA) Negative Urine Ketones Negative Urine Blood Trace-i Urine Nitrate Negative Urine Bilirubin Negative Urine Urobilinogen 0.2 Ur Leukocyte Esterase Negative Ur Squamous Epith Cells Occasional Urine Bacteria Trace DS: Diagnosis - Discharge Diagnosis (1) Previous section complicating Status: Acute (2) Gestational diabetes mellitus (GDM) affecting fourth Status: Acute (3) Preeclampsia Status: Acute (4) Encounter for sterilization Status: Acute Discharge Plan - Patient Discharge Instructions ACTIVITY: Ambulate as tolerated Additional Instructions: Drink plenty of fluids No driving or heavy lifting No tub baths Nothing in the vagina for 6 weeks Patient Instructions: Depression, Hemorrhage, DI for , DI for Pre-eclampsia, [facility] Post Discharge Instructions, Preventing the Spread of Coronavirus Discharge Instructions - Follow up Plan Follow up with: Glenn Chisholm MD [Staff Physician] - 01/23/21 10:30 am Disposition: Home, Self-Care Condition at discharge:: Stable Home Medications: Home Medications Medication Instructions Recorded Confirmed Type magnesium oxide 500 mg tablet 500 mg PO DAILY 12/27/20 01/06/21 History Folic Acid [Folic Acid 1mg tablet] 4 mg PO DAILY 01/06/21 01/06/21 History Multivitamin 1 tab PO DAILY 01/06/21 01/06/21 History Prescriptions/Medication Reconciliation: Continued Folic Acid [Folic Acid 1mg tablet] 4 mg PO DAILY Multivitamin 1 tab PO DAILY Discontinued magnesium oxide 500 mg tablet 500 mg PO DAILY - Problem Reconciliation Problems Reviewed?: Yes
--- NOTE | 2021-01-09 07:41 | HMH.ANESII ---
[facility] Anesthesia Record Part II Discharge Time: 17:43 Destination: Obstetric PACU nurse assessment reviewed?: Yes Patient Condition:: Good Anesthesia Complications:: None Swallowing reflex intact?: Yes Cyanosis?: No Blood Pressure: 91/53 Pulse Rate: 70 Temperature: 97.1 F Mental Status: Alert & Oriented Pain level:: 4 Nausea and/or vomitting:: None Intake, IV Amount: 1,000
[2021-01-09 07:42] VITALS: BP 91/53; PULSE 70; TEMP 36.2
== END 2021-01-08 12:31 | disposition home or self-care (01) | DRG 785 ==
PROVIDERS: Admitting Provider Nurse Practitioner Obstetrics & Gynecology; PCP Family Medicine; Visit Provider Nurse Practitioner Obstetrics & Gynecology
PROC: (CPT 59514; principal; 2021-01-06 12:45)
DX: O13.3 Gestational [pregnancy-induced] hypertension without significant proteinuria, third trimester (principal); Z3A.38 38 weeks gestation of pregnancy; Z37.0 Single live birth; O24.410 Gestational diabetes mellitus in pregnancy, diet controlled; O34.211 Maternal care for low transverse scar from previous cesarean delivery; N85.8 Other specified noninflammatory disorders of uterus; Z30.2 Encounter for sterilization
CPT/HCPCS: 59514; 58700; 36415; 59025; 80048; 81001; 82800; 82962; 83735; 84450; 84460; 84550; 85025; 85378; 85384; 85610; 85730; 86850; 90707; 94761; C9290; G0283; J2405; U0003

== ENCOUNTER → 2021-06-15 10:34 | Outpatient (CLI) | payer BC, SELFPAY ==
[2021-06-15 11:17] LABS: Hemoglobin A1C 5.1 % (4.0-6.0)
== END ==
PROVIDERS: Visit Provider Nurse Practitioner Obstetrics & Gynecology
DX: O24.439 Gestational diabetes mellitus in the puerperium, unspecified control (principal)
CPT/HCPCS: 36415; 83036

== ENCOUNTER 2024-08-10 13:21 | Outpatient (CLI) | payer BC, SELFPAY ==
--- NOTE | 2024-08-10 13:21 | MM_ITS ---
PROCEDURE INFORMATION: Exam: US Left Breast, Complete MG Bilateral Screening 3D Mammography Exam date and time: 08/10/2024 1:45 PM Age: 38 years old Clinical indication: Screening examination; Other: Tenderness TECHNIQUE: Imaging protocol: Complete ultrasound of all four quadrants of the left breast and the retroareolar regions, including ultrasound of the axilla when performed. Bilateral Screening tomosynthesis and 2D mammography including computer-aided detection (CAD) when performed. COMPARISON: None FINDINGS: MAMMOGRAPHY: Breast composition: The breasts are almost entirely fatty. Mass: None. Architectural distortion: None. Calcifications: None. Asymmetric density: None. Skin thickening: None. Axillary adenopathy: None. ULTRASOUND: Left solid masses: None. Left cystic masses: None. Left architectural distortion: None. Left acoustical shadowing: None. Left skin thickening: None. Left axillary adenopathy: None. IMPRESSION: No mammographic or sonographic evidence of malignancy. Annual screening is recommended unless otherwise clinically indicated. ASSESSMENT: BI-RADS Category 1: Negative.
== END 2024-08-10 23:59 | disposition home or self-care (01) ==
LOC: RAD 13:21
PROVIDERS: PCP Family Medicine; Visit Provider Nurse Practitioner Obstetrics & Gynecology
DX: Z12.31 Encounter for screening mammogram for malignant neoplasm of breast (principal); N64.4 Mastodynia
CPT/HCPCS: 76641; 77063; 77067